=== PATIENT | male | born 1985 | race African-American/Black ===

== ENCOUNTER 2019-12-15 18:22 | Emergency (ER) | payer SELFPAY ==
[~2019-12-15] VITALS: Ht 154.9 cm; Wt 40.8 kg
[2019-12-15] MEDS ORDERED: CLARITIN10 MG PO (19:51)
== END 2019-12-15 20:07 | disposition home or self-care (01) ==
LOC: ED 18:22
DX: T78.40XA Allergy, unspecified, initial encounter (principal); X58.XXXA Exposure to other specified factors, initial encounter